=== PATIENT | male | born 1970 | race Hispanic/Latino ===

== ENCOUNTER 2025-06-09 11:45 | Emergency (ER) | payer SELFPAY ==
[2025-06-09 11:50] VITALS: BP 143/86
[2025-06-09 12:12] VITALS: BP 131/75
--- NOTE | 2025-06-09 12:50 | ED.GENMED ---
History of Present Illness
General
Chief Complaint: Fever
Time Seen by Provider: 06/09/25 12:06
History of Present Illness
History of Present Illness:
54-year-old male with no past medical history presents the emergency department for evaluation of fever and bodyaches as well as headache developing today. He notes that he was bitten by a tick approximately 10 days ago that he states was a deer
tick. Denies any joint swelling, coughing, nasal congestion, or nausea/vomiting. No ill contacts at home.
Review of Systems
Review of Systems
Allergies reviewed?: Yes
All Other Systems: ROS reviewed and negative except as documented in HPI and ROS
Phy Exam
Physical Exam
Physical Exam:
GEN: Well appearing, NAD, WDWN
Eyes: PERRLA, EOMs intact, no scleral icterus
HENT: NCAT, oral mucosa moist
Lungs: CTAB, no wheezes, rales, rhonchi, normal chest wall excursion
Cardiac: Tachycardic, regular
Abdomen: S, NT, ND, NABS, no masses or hepatosplenomegaly
Neuro: AO x 3, no focal deficits to BUE/BLE, normal sensation throughout
MSK: No gross deformity or ecchymosis. No edema. No digital clubbing
Skin: No rashes, petechiae. Normal color, no pallor or jaundice.
Psych: Calm, cooperative, proper hygiene
Course
Orders/Labs/Results
Orders:
Orders
06/09/25 12:50
Acetaminophen [Tylenol] 650 mg PO NOW STA
Ibuprofen [Motrin] 600 mg PO NOW STA
06/09/25 13:03
COVID-19 Antigen Urgent
Source: Nasal Swab
Complete Blood Count/With Diff Urgent
Comprehensive Metabolic Panel Urgent
Lyme Progressive Urgent
Urinalysis Reflex To Culture Urgent
Date Specimen was Collected: 06/09/25
Time Specimen was Collected: 12:51
Urine Microscopic Reflex Cult Urgent
Influenza A+B Rapid Molecular Urgent
RAMIRO Source: Nasal Swab
Specimen Description:
Urine Culture Urgent
RAMIRO Source: U
Specimen Description:
Date Specimen was Collected: 06/09/25
Time Specimen was Collected: 12:51
Abnormal Lab Results
06/09/25
13:03
WBC 16.0 H 10^3/uL
(4.8-10.8)
Abs Immat Gran (auto) 0.2 H 10^3/uL
(0-0.05)
Absolute Neuts (auto) 13.6 H 10^3/uL
(1.4-6.5)
Absolute Monos (auto) 0.8 H 10^3/uL
(0.1-0.6)
Immature Gran % 1.1 H %
(0-0.5)
Neutrophils % 85.0 H %
(42.2-75.2)
Lymphocytes % 8.6 L %
(20.5-51.1)
Sodium 134 L mmol/L
(135-145)
Glucose 135 H mg/dl
(70-99)
Calcium 7.6 L mg/dl
(8.4-10.2)
Total Bilirubin 2.3 H mg/dl
(0.2-1.3)
Ur Occult Blood Reflex 3+ A
(Negative)
Urine Urobilinogen 2+ A
(Neg - 1+)
Urine Bacteria (Reflex) Moderate A
(Negative)
Urine Albumin (Reflex) 2+ A
(Neg - Trace)
06/09/25 13:03
06/09/25 13:03
Vital Signs
Initial and Last Documented VS:
Initial Vital Signs
Temp Pulse Resp BP Pulse Ox
101.5 F H 117 16 143/86 98
06/09/25 11:50 06/09/25 11:50 06/09/25 11:50 06/09/25 11:50 06/09/25 11:50
Last Documented Vital Signs
Temp Pulse Resp BP Pulse Ox
100.2 F 117 25 131/75 97
06/09/25 14:31 06/09/25 13:00 06/09/25 13:00 06/09/25 12:12 06/09/25 12:50
MDM/Problems Addressed
MDM/Problems Addressed:
Patient appears clinically well and fever broke in the ED after antipyretics. He does have leukocytosis but no other obvious source of fever. Will treat empirically for Lyme
*Pulse Oximetry
SaO2: 97
Oxygen Mode of Delivery: Room air
Patient hypoxic: no
*Critical Care Note
Total Time (30-74mins, 75-104mins- exclusive of procedures): Not Applicable
ED Attending Note
-
Portions of this chart may have been created with voice recognition software.� Occasional wrong word or��sound alike� substitutions may have occurred due to the inherent limitations of voice recognition software.
Discharge Plan
Departure
Patient Disposition: Home (Routine Discharge)
Date of Disposition: 06/09/25
Time of Disposition: 14:02
Patient with high blood pressure during this ER visit?: No
Discharge Problem:
Acute febrile illness
Instructions: Lyme Disease Test
Prescriptions:
New
doxycycline monohydrate 100 mg capsule
100 mg PO BID 21 Days Qty: 42 0RF
Interventions
Interventions:
*Risk Screen - Suicide Last Done: 06/09/25 11:50
*General Assessment Last Done: 06/09/25 13:06
*Neglect/Abuse Screening Last Done: 06/09/25 11:50
*ED- Fall Risk Assessment Last Done: 06/09/25 13:06
*ED COVID-19 Vaccine History Last Done: 06/09/25 13:06
*Nursing Disposition Last Done: 06/09/25 14:33
ED- Neurological Assessment Last Done: 06/09/25 13:06
ED-Skin Assessment Last Done: 06/09/25 13:06
Discharge Date and Time
Discharge Date/Time: 06/09/25 14:34
Print Language: ESTONIAN
[2025-06-09] MEDS: TYLENOL 650 MG PO (12:55)
[2025-06-09] MEDS: MOTRIN 600 MG PO (12:55)
[2025-06-09 13:15] LABS: Hematocrit 41.0 % (39.0-52.0); Hemoglobin 13.7 g/dL (13.0-18.0); Mean Corp Hgb Conc. 33.4 g/dL (33.0-37.0); Mean Corpuscular Volume 81.0 fL (80.0-94.0); Nucleated Red Blood Cells % 0 % (-); Platelet Count 179 10^3/uL (130-400); Red Cell Dist. Width 13.9 % (11.5-14.5)
[2025-06-09 13:16] LABS: Urine Character Slightly Cloudy (Clear)
[2025-06-09 13:28] LABS: COVID-19 Antigen Negative (Negative)
[2025-06-09 13:32] LABS: ALT (SGPT) 32 U/L (0-50); AST (SGOT) 29 U/L (17-59); Albumin 4.4 g/dl (3.5-5.0); Alkaline Phosphatase 62 U/L (38-126); Blood Urea Nitrogen 19 mg/dl (9-20); Calcium 7.6 mg/dl (8.4-10.2); Carbon Dioxide 25 mmol/L (22-30); Chloride 101 mmol/L (98-107); Glucose 135 mg/dl (70-99); Potassium 4.1 mmol/L (3.5-5.1); Sodium 134 mmol/L (135-145); Total Protein 8.1 g/dl (6.3-8.2); eGFR > 60.00
[2025-06-09 13:34] LABS: Urine Squamous Cell 0-2 /LPF (Few); Urine Urothelial Cell 0-2 /LPF (FEW)
[2025-06-09 13:35] LABS: Urine Red Blood Cell 0-2 /HPF (0-2)
[2025-06-12 13:31] LABS: Lyme Antibody Screen, EIA Presump. Positive (Negative)
== END 2025-06-09 14:34 | disposition home or self-care (01) ==
LOC: EMR 11:45
PROVIDERS: Physician Assistant; EMERGENCY PHYSICIAN Emergency Medicine
DX: R50.9 Fever, unspecified (principal); R51.9 Headache, unspecified; Z11.52 Encounter for screening for COVID-19
CPT/HCPCS: 99283; 80053; 81003; 81015; 85025; 86617; 86618; 87086; 87502; 87811